=== PATIENT | female | born 1965 | race Caucasian/White ===

== ENCOUNTER 2021-06-16 19:46 | Emergency (ER) | payer MEDICARE, OTHER ==
[2021-06-16 21:35] LABS: HEMOGLOBIN 13.5 gm/dl (12.3-15.3); RED BLOOD COUNT 4.53 M/UL (4.00-5.10); WHITE BLOOD COUNT 6.8 K/UL (4.5-11.0)
[2021-06-16] MEDS ORDERED: ONDANSETRON ODT4 MG SL (22:57)
== END 2021-06-17 00:25 | disposition home or self-care (01) ==
LOC: ER1 19:46
PROVIDERS: Physician Assistant
DX: K92.1 Melena (principal); E87.6 Hypokalemia; I10 Essential (primary) hypertension; Z88.0 Allergy status to penicillin; Z85.41 Personal history of malignant neoplasm of cervix uteri
CPT/HCPCS: 80053; 82150; 83605; 83690; 83735; 85025; 85610; 85730; 87086; 99284; Q9967